=== PATIENT | female | born 1940 | race Caucasian/White ===

== ENCOUNTER 2017-01-10 19:37 | Observation (INO) | payer MEDICARE ==
[2017-01-10 20:08] LABS: Glucose,Whole Blood 94 mg/dL (75-99)
[2017-01-10] MEDS ORDERED: SODIUM CHLORIDE 0.9% 500 ML IV STA (20:21)
[2017-01-10] MEDS ORDERED: DIPH,PERTUS(ACELL)TETVAC-LF 0.5 ML VIAL IM ONE (20:22)
[2017-01-10] MEDS: SODIUM CHLORIDE 0.9% 1,000 ML IV STA ×2 (20:34→21:33)
[2017-01-10 20:49] LABS: Basophils % (A) 1 %; CH 32.6; CHCM 35.1; Eosinophils # (A) 0.2 k/uL (0-0.7); Eosinophils % (A) 3 %; HCT 35.4 % (34.0-46.0); HDW 2.63; HGB 12.5 gm/dL (11.4-16.0); Luc # (Auto) 0.08; Luc % (Auto) 1; Lymphocytes # (A) 1.8 k/uL (1.0-4.8); Lymphocytes % (A) 26 %; MCHC 35.4 g/dL (31.0-37.0); MCV 93.3 fL (80.0-100.0); Mean Platelet Volume 8.5; Monocytes # (A) 0.4 k/uL (0-1.0); Monocytes % (A) 5 %; Neutrophils # (A) 4.4 k/uL (1.3-7.7); Neutrophils % (A) 64 %; WBC 6.8 k/uL (3.8-10.6); WBC (Perox) 6.38
[2017-01-10 20:58] LABS: ALT 29 U/L (9-52); AST 28 U/L (14-36); Alkaline Phosphatase 64 U/L (38-126); Anion Gap 8 mmol/L; Blood Urea Nitrogen 20 mg/dL (7-17); Calcium 9.6 mg/dL (8.4-10.2); Carbon Dioxide 24 mmol/L (22-30); Chloride 108 mmol/L (98-107); Glucose 98 mg/dL (74-99); Non-African American GFR(MDRD) 60 (>60 ml/min/1.73 sqM); Potassium 4.5 mmol/L (3.5-5.1); Sodium 140 mmol/L (137-145); Total Bilirubin 1.2 mg/dL (0.2-1.3); Total Protein 6.5 g/dL (6.3-8.2)
[2017-01-10 21:05] LABS: Prothrombin Time 10.4 sec (9.0-12.0)
[2017-01-10 21:11] LABS: Partial Thromboplastin Time 20.9 sec (22.0-30.0)
[2017-01-10 21:13] LABS: Creatine Kinase 66 U/L (30-135)
[2017-01-10 21:26] LABS: Creatine Kinase MB 0.4 ng/mL (0.0-2.4); Troponin I <0.012 ng/mL (0.000-0.034)
--- NOTE | 2017-01-10 21:27 | CT ---
EXAMINATION TYPE: CT brain geovanna bird DATE OF EXAM: 01/10/2017 COMPARISON: NONE HISTORY: Syncope today. CT DLP: 1353.8 mGycm Automated exposure control for dose reduction was used. TECHNIQUE: CT scan of the head and cervical spine are performed without contrast. FINDINGS: Ventricles of normal size. There is no mass effect nor midline shift. There is no sign of intracranial hemorrhage. Calvarium is intact. There is mild hypodensity in the left posterior pariet al lobe white matter and in bilateral frontal lobe white matter. There is mild straightening of the cervical vertebra. There is degenerative disc space narrowing from C3 to C7 with spurring of the endplates. There is multilevel hypertrophic facet arthropathy. The sku ll base is intact. There is no evidence of a fracture. IMPRESSION: No acute abnormality of the brain. Mild chronic small vessel ischemia. Multilevel spondylosis in the cervical spine. No fracture.
--- NOTE | 2017-01-10 21:33 | ED ---
Dizziness HPI - General Chief Complaint: Syncope Stated Complaint: near syncope Time Seen by Provider: 01/10/17 19:43 Source: patient, EMS Mode of arrival: EMS Limitations: no limitations - History of Present Illness Initial Comments: She was at home she got dizzy and then she passed out in the meantime she was trying to grab a chair so she could sit down no nobody witnessed and she thinks she is a regular head against the chair and now she has a hematoma on the right forehead complaining about headache vision is clear some discomfort in the back and she lost consciousness he was less than 1 minute. Now she denies any chest pain or shortness of breath is no palpitation well and there was no palpitation prior to she passed out no abdominal pain no frequency urgency dysuria no sinus symptoms of TIA or CVA - Related Data Home Medications Medication Instructions Recorded Confirmed Aspirin EC [Ecotrin Low Dose] 81 mg PO QAM 01/10/17 01/10/17 Diltiazem HCl [Diltiazem 24Hr ER] 180 mg PO QAM 01/10/17 01/10/17 Ezetimibe/Simvastatin [Vytorin 1 tab PO HS 01/10/17 01/10/17 10-40 mg Tablet] Lisinopril [Prinivil] 20 mg PO QAM 01/10/17 01/10/17 Metoprolol Succinate (ER) [Toprol 25 mg PO QAM 01/10/17 01/10/17 Xl] Sotalol [Betapace] 80 mg PO BID 01/10/17 01/10/17 Allergies Allergy/AdvReac Type Severity Reaction Status Date / Time No Known Allergies Allergy Verified 01/10/17 20:26 Review of Systems ROS Statement: Those systems with pertinent positive or pertinent negative responses have been documented in the HPI. ROS Other: All systems not noted in ROS Statement are negative. Past Medical History Past Medical History: Atrial Fibrillation, Hyperlipidemia, Hypertension History of Any Multi-Drug Resistant Organisms: None Reported Past Surgical History: Heart Catheterization With Stent Additional Past Surgical History / Comment(s): cardioversion 08/2016 Past Psychological History: No Psychological Hx Reported Smoking Status: Never smoker Past Alcohol Use History: Occasional Past Drug Use History: None Reported General Exam - General Exam Comments Initial Comments: General: The patient is awake and alert, in no distress, and does not appear acutely ill. GCS is 15 Skin: Skin is warm and dry and no rashes or lesions are noted. Noticed a hematoma on the top of the right eye, is about the 3 x 3 cm Eye: Pupils are equal, round and reactive to light, extra-ocular movements are intact; there is normal conjunctiva bilaterally. Ears, nose, mouth and throat: There are moist mucous membranes and no oral lesions. Neck: The neck is tender at the C5 and C6 Cardiovascular: There is a regular rate and rhythm. No murmur, rub or gallop is appreciated. Respiratory: To auscultation bilateral, no wheezing no rhonchi no distress respiratory hicks noticed Gastrointestinal: Soft, non-distended, non-tender abdomen without masses or organomegaly noted. There is no rebound or guarding present. Bowel sounds are unremarkable. Back: There is no tenderness to palpation in the midline. There is no obvious deformity. Musculoskeletal: Normal ROM, no tenderness, There is no pedal edema. There is no calf tenderness or swelling. No cords were appreciated. Neurological: CN II-XII intact, Cranial nerves III through XII are intact. There are no obvious motor or sensory deficits. Coordination appears grossly intact. Speech is normal. Psychiatric: Cooperative, appropriate mood & affect, normal judgment. Limitations: no limitations Course Vital Signs 01/10/17 01/10/17 01/10/17 19:38 21:30 22:48 Temperature 98.5 F 97.7 F 97.5 F L Pulse Rate 56 L 58 L 62 Respiratory 17 16 16 Rate Blood Pressure 166/74 165/73 147/65 Blood Pressure [Right Arm] O2 Sat by Pulse 96 94 L 95 Oximetry 01/10/17 01/10/17 01/10/17 22:52 22:57 23:41 Temperature Pulse Rate 58 L Respiratory 17 Rate Blood Pressure 161/69 Blood Pressure 147/65 163/74 [Right Arm] O2 Sat by Pulse 98 Oximetry She was reassessed at 2300, her labs were reviewed including imaging studies and troponin and EKG CBC CMP and INR also normal urinalysis was positive head CT and cervical spine CT are unremarkable considering the possibility of tachyarrhythmia or bradycardia she was advised to stay in the hospital for observation since YESTERDAY stating 10 quite explain her sudden passing out, she agreed to that she be admitted to Dr. Waters service EKG Findings - EKG Comments: EKG Findings:: (This is sinus bradycardia heart rate of 53 RI interval is 178 QRS duration is 84 QT/QTc is 490/459 review of this EKG reveals T-wave inversion in lead 3, no ST elevation or ST depression noticed in today's EKG we do not have an old EKG to compare with - EKG Results: EKG: interpreted by PURNIMA Medical Decision Making - Lab Data Result diagrams: 01/10/17 20:35 01/10/17 20:35 Lab Results 01/10/17 01/10/17 01/10/17 Range/Units 19:46 20:35 20:35 WBC 6.8 (3.8-10.6) k/uL RBC 3.80 (3.80-5.40) m/uL Hgb 12.5 (11.4-16.0) gm/dL Hct 35.4 (34.0-46.0) % MCV 93.3 (80.0-100.0) fL MCH 33.0 (25.0-35.0) pg MCHC 35.4 (31.0-37.0) g/dL RDW 13.0 (11.5-15.5) % Plt Count 165 (150-450) k/uL Neutrophils % 64 % Lymphocytes % 26 % Monocytes % 5 % Eosinophils % 3 % Basophils % 1 % Neutrophils # 4.4 (1.3-7.7) k/uL Lymphocytes # 1.8 (1.0-4.8) k/uL Monocytes # 0.4 (0-1.0) k/uL Eosinophils # 0.2 (0-0.7) k/uL Basophils # 0.0 (0-0.2) k/uL PT (9.0-12.0) sec INR (<1.1) APTT (22.0-30.0) sec Sodium (137-145) mmol/L Potassium (3.5-5.1) mmol/L Chloride (98-107) mmol/L Carbon Dioxide (22-30) mmol/L Anion Gap mmol/L BUN (7-17) mg/dL Creatinine (0.52-1.04) mg/dL Est GFR (MDRD) Af Amer (>60 ml/min/1.73 sqM) Est GFR (MDRD) Non-Af (>60 ml/min/1.73 sqM) Glucose (74-99) mg/dL POC Glucose (mg/dL) 94 (75-99) mg/dL POC Glu Child Support Specialist ID [place] Calcium (8.4-10.2) mg/dL Total Bilirubin (0.2-1.3) mg/dL AST (14-36) U/L ALT (9-52) U/L Alkaline Phosphatase (38-126) U/L Total Creatine Kinase 66 (30-135) U/L CK-MB (CK-2) 0.4 (0.0-2.4) ng/mL CK-MB (CK-2) Rel Index 0.6 Troponin I <0.012 (0.000-0.034) ng/mL Total Protein (6.3-8.2) g/dL Albumin (3.5-5.0) g/dL Urine Color Urine Appearance (Clear) Urine pH (5.0-8.0) Ur Specific [place] (1.001-1.035) Urine Protein (Negative) Urine Glucose (UA) (Negative) Urine Ketones (Negative) Urine Blood (Negative) Urine Nitrite (Negative) Urine Bilirubin (Negative) Urine Urobilinogen (<2.0) mg/dL Ur Leukocyte Esterase (Negative) Urine RBC (0-5) /hpf Urine WBC (0-5) /hpf 01/10/17 01/10/17 01/10/17 Range/Units 20:35 20:35 21:44 WBC (3.8-10.6) k/uL RBC (3.80-5.40) m/uL Hgb (11.4-16.0) gm/dL Hct (34.0-46.0) % MCV (80.0-100.0) fL MCH (25.0-35.0) pg MCHC (31.0-37.0) g/dL RDW (11.5-15.5) % Plt Count (150-450) k/uL Neutrophils % % Lymphocytes % % Monocytes % % Eosinophils % % Basophils % % Neutrophils # (1.3-7.7) k/uL Lymphocytes # (1.0-4.8) k/uL Monocytes # (0-1.0) k/uL Eosinophils # (0-0.7) k/uL Basophils # (0-0.2) k/uL PT 10.4 (9.0-12.0) sec INR 1.0 (<1.1) APTT 20.9 L (22.0-30.0) sec Sodium 140 (137-145) mmol/L Potassium 4.5 (3.5-5.1) mmol/L Chloride 108 H (98-107) mmol/L Carbon Dioxide 24 (22-30) mmol/L Anion Gap 8 mmol/L BUN 20 H (7-17) mg/dL Creatinine 0.91 (0.52-1.04) mg/dL Est GFR (MDRD) Af Amer >60 (>60 ml/min/1.73 sqM) Est GFR (MDRD) Non-Af 60 (>60 ml/min/1.73 sqM) Glucose 98 (74-99) mg/dL POC Glucose (mg/dL) (75-99) mg/dL POC Glu Child Support Specialist ID Calcium 9.6 (8.4-10.2) mg/dL Total Bilirubin 1.2 (0.2-1.3) mg/dL AST 28 (14-36) U/L ALT 29 (9-52) U/L Alkaline Phosphatase 64 (38-126) U/L Total Creatine Kinase (30-135) U/L CK-MB (CK-2) (0.0-2.4) ng/mL CK-MB (CK-2) Rel Index Troponin I (0.000-0.034) ng/mL Total Protein 6.5 (6.3-8.2) g/dL Albumin 4.1 (3.5-5.0) g/dL Urine Color Light Yellow Urine Appearance Clear (Clear) Urine pH 6.5 (5.0-8.0) Ur Specific [place] 1.006 (1.001-1.035) Urine Protein Negative (Negative) Urine Glucose (UA) Negative (Negative) Urine Ketones Negative (Negative) Urine Blood Negative (Negative) Urine Nitrite Negative (Negative) Urine Bilirubin Negative (Negative) Urine Urobilinogen <2.0 (<2.0) mg/dL Ur Leukocyte Esterase Moderate H (Negative) Urine RBC <1 (0-5) /hpf Urine WBC 6 H (0-5) /hpf Disposition Clinical Impression: Syncope, Head injury Disposition: ADMITTED IP TO THIS [facility] Condition: Good Referrals: Nonstaff,Physician [Primary Care Provider] - 1-2 days
[2017-01-10 22:03] LABS: Appearance,Urine Clear (Clear); Bilirubin,Urine Negative (Negative); Glucose,Urine (UA) Negative (Negative); Ketones,Urine Negative (Negative); Leukocyte Esterase,Urine Moderate (Negative); Nitrite,Urine Negative (Negative); PH, Urine 6.5 (5.0-8.0); Particle Count 769; Protein,Urine Negative (Negative); RBC,Urine <1 /hpf (0-5); Specific Gravity,Urine 1.006 (1.001-1.035); UA Billing (MACRO vs. MICRO) MICRO; Urobilinogen,Urine <2.0 mg/dL (<2.0); WBC,Urine 6 /hpf (0-5)
--- NOTE | 2017-01-10 22:59 | XR ---
EXAM: XR Chest, 2 Views CLINICAL HISTORY: Reason: syncope TECHNIQUE: Frontal and lateral views of the chest. COMPARISON: No relevant prior studies available. FINDINGS: Lungs: Diffusely prominent interstitial markings throughout. No superimposed infiltrate. Pleural space: No pneumothorax or definite pleural effusion is seen. Heart: Borderline cardiomegaly. Mediastinum: Unremarkable. Bones/joints: Multilevel degenerative changes. IMPRESSION: Prominent interstitial markings, which may reflect the presence of mild pulmonary vascular congestion the acute setting, or mild interstitial lung disease in the chronic setting. This could be correlated clinically and if no priors, reassessed by short-term follow-up.
[2017-01-10] MEDS ORDERED: SODIUM CHLORIDE 0.9% 1,000 ML IV ONE (23:45)
[2017-01-11 00:44] VITALS: RESP 18
[2017-01-11 00:47] VITALS: BMI 29.2
[2017-01-11] MEDS: ASPIRIN 81 MG CHEW PO SCH (09:10)
[2017-01-11] MEDS: DILTIAZEM CD 180 MG CAP.ER.24H PO SCH (09:11)
[2017-01-11] MEDS: LISINOPRIL 20 MG TAB PO SCH (09:11)
[2017-01-11] MEDS: METOPROLOL SUCCINATE (ER) 25 MG TAB.ER.24H PO SCH (09:11)
[2017-01-11] MEDS: NITROFURANTOIN MONOHYD/M-CRYST 100 MG CAP PO SCH ×2 (09:12→21:56)
[2017-01-11] MEDS: SOTALOL 80 MG TAB PO SCH ×2 (09:12→21:56)
--- NOTE | 2017-01-11 15:17 | P.CNNES ---
History of Present Illness Consult date: 01/11/17 Requesting physician: Felicitas Waters Reason for Consult: Syncope History of Present Illness: Patient is a pleasant 76-year-old female who is being seen today 01/11 by the neurology service per the request of Dr. Waters for syncope. Patient has history of CAD and is on metoprolol, lisinopril, diltiazem, sotalol , aspirin, and Vytorin in the home setting. Patient denies any history of syncopal episodes. Patient denies any seizure activity. Patient denies any speech difficulty or lateralizing weakness. Patient denies headache or visual changes. Patient states she was shopping in the store and bending down looking at items on a bottom shelf and stood up and felt dizzy. Patient states she was going to sit down but had passed out before she could get to the chair. It appears her head had hit the chair causing a hematoma over the right eye. Computed tomography scan was done on admission which showed no acute abnormality of the brain. Patient had CT of the C-spine as well which did not show any acute changes. CBC was within normal limits. Sodium 140, potassium 4.5, chloride 108, carbon dioxide 24. BUN 20, creatinine 0.91. Pulse rate has been in the 50s. Blood pressure 137/64. At the time of my evaluation, patient is resting comfortably in bed and appears to be in no acute distress. Review of Systems REVIEW OF SYSTEMS: Otherwise unremarkable and noncontributory. Past Medical History Past Medical History: Atrial Fibrillation, Hyperlipidemia, Hypertension History of Any Multi-Drug Resistant Organisms: None Reported Past Surgical History: Heart Catheterization With Stent Additional Past Surgical History / Comment(s): cardioversion 08/2016 Past Anesthesia/Blood Transfusion Reactions: No Reported Reaction Date of Last Stent Placement:: 2002 Past Psychological History: No Psychological Hx Reported Smoking Status: Never smoker Past Alcohol Use History: None Reported Past Drug Use History: None Reported - Past Family History Mother Family Medical History: Diabetes Mellitus Additional Family Medical History / Comment(s): heart disease. at 78 Father Family Medical History: Myocardial Infarction ([place]) Medications and Allergies Home Medications Medication Instructions Recorded Confirmed Type Aspirin EC [Ecotrin Low Dose] 81 mg PO QAM 01/10/17 01/11/17 History Diltiazem HCl [Diltiazem 24Hr ER] 180 mg PO QAM 01/10/17 01/11/17 History Ezetimibe/Simvastatin [Vytorin 1 tab PO HS 01/10/17 01/11/17 History 10-40 mg Tablet] Lisinopril [Prinivil] 20 mg PO QAM 01/10/17 01/11/17 History Metoprolol Succinate (ER) [Toprol 25 mg PO QAM 01/10/17 01/11/17 History Xl] Sotalol [Betapace] 80 mg PO BID 01/10/17 01/11/17 History Allergies Allergy/AdvReac Type Severity Reaction Status Date / Time No Known Allergies Allergy Verified 01/11/17 00:35 Physical Examination - Vital Signs Vital Signs: Vital Signs Temp Pulse Pulse Pulse Pulse Pulse Resp 01/11/17 13:50 59 L 59 L 58 L 01/11/17 11:49 98.2 F 51 L 18 01/11/17 08:00 18 01/11/17 07:53 98.0 F 56 L 18 01/11/17 04:00 97.9 F 55 L 18 01/11/17 03:53 18 01/11/17 01:23 18 01/11/17 00:42 98 F 63 18 01/11/17 00:08 97.9 F 58 L 16 01/10/17 23:41 58 L 17 01/10/17 22:57 01/10/17 22:52 01/10/17 22:48 97.5 F L 62 16 01/10/17 21:30 97.7 F 58 L 16 01/10/17 19:38 98.5 F 56 L 17 BP BP BP BP BP Pulse Ox 01/11/17 13:50 178/80 173/78 149/70 01/11/17 11:49 134/59 91 L 01/11/17 08:00 01/11/17 07:53 137/64 94 L 01/11/17 04:00 134/65 97 01/11/17 03:53 01/11/17 01:23 01/11/17 00:42 172/63 97 01/11/17 00:08 152/69 98 01/10/17 23:41 161/69 98 01/10/17 22:57 163/74 01/10/17 22:52 147/65 01/10/17 22:48 147/65 95 01/10/17 21:30 165/73 94 L 01/10/17 19:38 166/74 96 Intake and Output 01/11/17 01/11/17 01/11/17 06:59 14:59 22:59 Other: # Voids 1 Weight 77 kg PHYSICAL EXAM: GENERAL APPEARANCE: Patient is a well-developed, female who appears to be in no acute distress. HEENT: Normocephalic, atraumatic, no facial asymmetry is seen. Neck is supple with no masses felt. CARDIOVASCULAR: Regular rate and rhythm. ABDOMEN: Nontender, nondistended. EXTREMITIES: Show no edema or clubbing. NEUROLOGICAL EXAM: Patient is awake, alert, and oriented 3. Speech and language are normal. Strength is full in all 4 extremities. Sensory exam to light touch is normal in all 4 extremities. No facial asymmetry is seen on cranial nerve testing. No tremors or seizure-like activity is noted. Results - Laboratory Findings CBC and BMP: 01/10/17 20:35 01/10/17 20:35 Abnormal Lab Findings: Abnormal Labs 01/10/17 01/10/17 01/10/17 20:35 20:35 21:44 APTT 20.9 L Chloride 108 H BUN 20 H Ur Leukocyte Esterase Moderate H Urine WBC 6 H Assessment and Plan (1) Head injury Status: Acute (2) Syncope Status: Acute Plan: It does appear patient had syncopal episode. I believe this is related to vasovagal syncope. Neurological exam reveals no deficits. Patient is on multiple cardiac medications. Cardiology is on consult. Computed tomography scan was negative. Patient does not have history of syncopal episodes. Patient was not witnessed to have any tonic-clonic movement. No post ictal state was described. Continue cardiology management. Continue neurological checks. I will continue to follow with you on an as-needed basis. Feel free to call with any questions or concerns. Thank you for allowing me to participate in the care of your patient. Feel free to call with any questions or concerns. I performed an examination of the patient and discussed the management with the CD TECHNICIAN. I have reviewed the CD TECHNICIAN notes and agree with the findings and plan of care.
[2017-01-11] MEDS ORDERED: ATORVASTATIN 20 MG TAB PO SCH (21:00)
[2017-01-11] MEDS ORDERED: EZETIMIBE 10 MG TAB PO SCH (21:00)
--- NOTE | 2017-01-11 21:34 | CONS ---
Mrs. Anderson is a 76-year-old female who is seen for evaluation of syncope. The patient's medical records were reviewed. This patient was strolling through a store and she felt woozy. The wooziness got worse and she felt that she may faint. She tried to grab a chair to sit down, but she did hit her head against the chair. She had some hematoma on the right side. EMS was called. When EMS arrived, the patient's vital signs were stable. She was not confused. She passed out for less than a minute. She had not had any nausea, vomiting or sweating. This patient has a history of hypertension. She had cardioversion done in August of 2016 and she is being followed by Cardiology at [facility]. The patient says she has been tried on Xarelto and Eliquis, but because of hematuria, they needed to stop that. She is currently only on baby aspirin. The patient has a past history of a stent, but she denies any history of angina. She has a history of hypertension. Home medications include: 1. Baby aspirin. 2. Cardizem 180 mg daily. 3. Prinivil 20 mg daily. 4. Metoprolol succinate 25 mg daily. 5. Sotalol 80 mg b.i.d. Past medical history includes: 1. History of atrial fibrillation. 2. Hyperlipidemia. 3. Hypertension. 4. Heart catheterization. 5. Cardioversion. SMOKING HISTORY: Patient was never a smoker. Physical examination at present reveals a 76-year-old female who does not appear to be in any acute distress. Patient's blood pressure now is 134/60 mmHg. Heart rate is 51 per minute. Head/ENT examination is negative. Neck is supple. There is no increase in jugular venous pressure. Both the carotid pulses are felt. There is no bruit. Chest is symmetrical. HEART: The PMI is not felt. First and second heart sounds are normal. There is no evidence of any murmur. Lungs are clinically clear to auscultation and percussion. Abdomen is soft. Liver and spleen are not enlarged. Bowel sounds are heard. EXTREMITIES: Peripheral pulsations are 2+. EKG shows normal sinus rhythm with sinus bradycardia. Patient's corrected QT interval was 459 ms. Patient's 2 sets of troponin are normal. FINAL IMPRESSION: Syncope. Most likely patient had vasovagal syncope or orthostatic hypotension. No arrhythmias are noted since admission. EKGs and cardiac enzymes are normal. We will check for any orthostatic hypotension. Echo and Doppler study will be done. If patient remains stable and is ambulating in the hallway, she can be discharged home. She is advised to follow up with her sexton helper. ULICES
[2017-01-11] MEDS: HEPARIN SODIUM,PORCINE 5,000 UNIT/ML 1 ML VIAL SQ SCH (21:59)
[2017-01-12 03:55] VITALS: PULSE 57
[2017-01-12] MEDS ORDERED: PANTOPRAZOLE 40 MG TABLET PO SCH (07:30)
[2017-01-12 07:58] VITALS: BP 143/51; TEMP 98.2
[2017-01-12] MEDS: METOPROLOL SUCCINATE (ER) 25 MG TAB.ER.24H PO SCH (08:03)
[2017-01-12] MEDS: LISINOPRIL 20 MG TAB PO SCH (08:03)
[2017-01-12] MEDS: ASPIRIN 81 MG CHEW PO SCH (08:04)
[2017-01-12] MEDS: NITROFURANTOIN MONOHYD/M-CRYST 100 MG CAP PO SCH (08:06)
[2017-01-12] MEDS: DILTIAZEM CD 180 MG CAP.ER.24H PO SCH (09:59)
[2017-01-12] MEDS: SOTALOL 80 MG TAB PO SCH (09:59)
--- NOTE | 2017-01-12 09:59 | ECHOF ---
Referral Reason:SYNCOPE MEASUREMENTS -------- HEIGHT: 160.0 cm WEIGHT: 76.7 kg BP: IVSd: 1.4 cm (0.6 - 1.1) LVIDd: 4.0 cm (3.9 - 5.3) LVPWd: 1.3 cm (0.6 - 1.1) IVSs: 1.5 cm LVIDs: 2.3 cm LVPWs: 1.6 cm LAESV Index (A-L): 44.12 ml/m Ao Diam: 3.0 cm (2.0 - 3.7) AV Cusp: 2.1 cm (1.5 - 2.6) LA Diam: 3.6 cm (2.7 - 3.8) MV EXCURSION: 15.618 mm (> 18.000) MV EF SLOPE: 71 mm/s (70 - 150) EPSS: 0.5 cm MV E Tadeo: 1.10 m/s MV DecT: 147 ms MV A Tadeo: 0.47 m/s MV E/A Ratio: 2.34 AR PHT: 225 ms RAP: 5.00 mmHg RVSP: 64.21 mmHg FINDINGS -------- Sinus rhythm. This was a technically good study. There is moderate concentric left ventricular hypertrophy. Overall left ventricular systolic function is normal with, an EF between 55 - 60 %. The right ventricle is normal in size and function. LA is severely dilated >40 ml/m2 RA appears enlarged. Aortic valve is trileaflet and is mildly thickened. Trace amount of aortic regurgitation. The mitral valve leaflets are mildly thickened. Moderate mitral regurgitation is present. Severe tricuspid regurgitation present. There is moderate to severe pulmonary hypertension. The right ventricular systolic pressure, as measured by Doppler, is 64.21mmHg. Pulmonic valve appears structurally normal. The aortic root size is normal. The pericardium is normal. CONCLUSIONS -------- 1. Sinus rhythm. 2. The mitral valve leaflets are mildly thickened. 3. Moderate mitral regurgitation is present. 4. Severe tricuspid regurgitation present. 5. There is moderate to severe pulmonary hypertension. 6. The right ventricular systolic pressure, as measured by Doppler, is 64.21mmHg. 7. Pulmonic valve appears structurally normal. 8. The aortic root size is normal. 9. The pericardium is normal. 10. This was a technically good study. 11. There is moderate concentric left ventricular hypertrophy. 12. Overall left ventricular systolic function is normal with, an EF between 55 - 60 %. 13. The right ventricle is normal in size and function. 14. LA is severely dilated >40 ml/m2 15. RA appears enlarged. 16. Aortic valve is trileaflet and is mildly thickened. 17. Trace amount of aortic regurgitation. NEWSPAPER COPY EDITOR: Vera Ibarra RDCS
[2017-01-12] MEDS: HEPARIN SODIUM,PORCINE 5,000 UNIT/ML 1 ML VIAL SQ SCH (10:01)
--- NOTE | 2017-01-12 13:14 | HP ---
DATE OF SERVICE: 01/11/2017 CHIEF COMPLAINT: Near syncope. HISTORY OF PRESENT ILLNESS: This 76-year-old woman with a past medical history of multiple medical problems atrial fibrillation, hypertension, hyperlipidemia, CAD, stent being followed by primary physician and Cardiology elsewhere was apparently shopping and the patient passed out and hit the chair and had multiple bruise on the right side of the face and admitted for further evaluation. There is no history of fever, rigors. No history of headache, loss of consciousness or seizures. Had headache. The patient did not have any orthostatic, but bradycardia was noted since admission. Cardiology evaluation in progress. PAST MEDICAL HISTORY: History of atrial fibrillation, hypertension, hyperlipidemia, history of CAD, stent. Medications prior to admission include: 1. Sotalol 80 mg p.o. b.i.d. 2. Toprol XL 25 mg q.a.m. 3. Prinivil 20 mg q.a.m. 4. Vytorin 10-40 p.o. q.h.s. 5. Cardizem 180 mg q.a.m. 6. Ecotrin 81 mg q.a.m. Allergies are none. FAMILY HISTORY: History of diabetes mellitus in the family. SOCIAL HISTORY: No history of smoking. No history of alcohol intake. REVIEW OF SYSTEMS: ENT: No diminished hearing or diminished vision. CARDIOVASCULAR: No angina. RESPIRATORY: As mentioned earlier. GI: No nausea. : No dysuria. NERVOUS SYSTEM: No numbness or weakness. ALLERGIES/IMMUNOLOGY: No history of asthma or hayfever. MUSCULOSKELETAL: As mentioned earlier. HEMATOLOGY/ONCOLOGY: No history of anemia. ENDOCRINE: No history of diabetes mellitus. CONSTITUTIONAL: As mentioned earlier. DERMATOLOGY: Negative. RHEUMATOLOGY: Negative. PSYCHIATRY: As mentioned earlier. PHYSICAL EXAMINATION: The patient is alert and oriented x3. Pulse 62, blood pressure 147/65, respirations 16, temperature 97.4, pulse ox 95% on room air. HEENT: Conjunctivae normal. NECK: No jugular venous distention. CARDIOVASCULAR: S1 and S2 muffled. RESPIRATORY: Breath sounds diminished at the bases. A few scattered rhonchi. No crackles. ABDOMEN: Soft, nontender. No mass palpable. LEGS: No edema, no swelling. NERVOUS SYSTEM: Higher function as mentioned. Moves all 4 limbs. No focal motor or sensory deficits. LYMPHATICS: No lymphadenopathy of the neck, axillae or groin. SKIN: No ulcers, rashes or bleeding . LABS: CBC within normal limits. BUN 20. UA showed possible UTI. ASSESSMENT: 1. Presyncope for evaluation, rule out orthostatic hypotension. 2. Urinary tract infection, mild. 3. History of atrial fibrillation. 4. Hyperlipidemia. 5 . Bradycardia, present on admission. 6. History of coronary artery disease, stent. 7. History of cardioversion. 8. Hypertension. RECOMMENDATIONS AND DISCUSSION: In this 76-year-old who presented with multiple complex medical issues. Will monitor the patient closely. Continue the current medications. Continue symptomatic treatment. Monitor blood pressure closely. Cardiology consultation. IV fluids. Orthostatic vitals. Prognosis guarded because of multiple complex medical issues. Further recommendations to follow. See orders for further details. DVT prophylaxis and Protonix. MTDD
--- NOTE | 2017-01-14 14:02 | DS ---
FINAL DIAGNOSES: 1. Syncope, possibly vasovagal. 2. Urinary tract infection, present on admission. 3. History of atrial fibrillation. 4. History of hyperlipidemia. DISCHARGE DISPOSITION: The patient will be discharged in stable condition with guarded prognosis. HISTORY OF PRESENT ILLNESS: This 76 year old woman with past medical history of multiple medical problems was admitted with features of syncope. The patient was treated symptomatically. Possibly vasovagal syncope was considered. The patient was not orthostatic. Cardiology saw the patient. Neurology was the patient. On exam, vital signs are stable. Cardiovascular S1, S2 muffled. Abdomen soft. Nervous system no focal deficits. DISCHARGE ADVICE AND MEDICATIONS: 1. Diet is cardiac. 2. Activity limited until follow up. 3. Follow up with the primary physician in one to two days. 4. Follow up with cardiology and neurology as recommended. 5. Ecotrin 81 mg daily. 6. Diltiazem 180 mg in the morning. 7. Vytorin one tablet q.h.s. 8. Prinivil 20 mg q.i.d. 9. Toprol XL 25 mg. 10. Nitrofuran 100 mg po b.i.d. for four days. 11. Betapace 80 mg po b.i.d. MTDD
== END 2017-01-12 12:04 | disposition home or self-care (01) ==
LOC: EC 19:37 → 3OBS 23:45
PROVIDERS: ADMIT Hospitalist; ATTEND Hospitalist
DX: I95.1 Orthostatic hypotension (principal); R42 Dizziness and giddiness; I48.91 Unspecified atrial fibrillation; E78.5 Hyperlipidemia, unspecified; I10 Essential (primary) hypertension; S00.83XA Contusion of other part of head, initial encounter; N39.0 Urinary tract infection, site not specified; R40.2410 Glasgow coma scale score 13-15, unspecified time; I25.10 Atherosclerotic heart disease of native coronary artery without angina pectoris; R00.1 Bradycardia, unspecified; X58.XXXA Exposure to other specified factors, initial encounter; Z79.899 Other long term (current) drug therapy; Z79.82 Long term (current) use of aspirin; Z95.5 Presence of coronary angioplasty implant and graft; Z82.49 Family history of ischemic heart disease and other diseases of the circulatory system; Z83.3 Family history of diabetes mellitus; Z23 Encounter for immunization
CPT/HCPCS: 96361 ×2; 96374; 96376; 99285; 36415; 94760; 93005; 93306; 80053; 82550; 82553; 84484 ×2; 85025; 85610; 85730; 81001; 71020; 72125; 70450; 90715; G0378 ×3; J1644 ×2